=== PATIENT | male | born 1995 | race American Indian/Alaskan Native ===

== ENCOUNTER 2018-09-09 08:21 | Emergency (ER) | payer SELFPAY ==
[2018-09-09 08:30] VITALS: BP 129/69
--- NOTE | 2018-09-09 09:04 | Emergency Department Report ---
ED General Adult HPI - General Chief complaint: Chest Pain Stated complaint: CHEST/FOOT/R WRIST PAIN Time Seen by Provider: 09/09/18 08:54 Source: patient Mode of arrival: Ambulatory Limitations: No Limitations - History of Present Illness Initial comments: 23-year-old male who presents to ED with complaint of right foot pain x1 year. Patient states he injured his foot one year ago, and it has been hurting since that injury. Patient denies any recent foot injury. Patient reports pain is on the lateral and plantar aspect of the right foot. It has worsened due to the fact that he does a lot of standing at his job Patient states his girlfriend told to get his chest pain checked out while he was here. Patient reports he occasionally has pain in the center of his chest, that lasts a few seconds at a time, it makes his chest feels as if it is "empty, like nothing is there." Patient denies any chest pain at this time. Denies any aggravating or alleviating factors for the chest pain. States these episodes have been ongoing for "months." Patient also states "I think I sprained my wrist." -: year(s) (1) Location: chest, right, lower extremity Quality: aching Consistency: intermittent Worsens with: other (standing for long periods of time) Associated Symptoms: denies other symptoms - Related Data Previous Rx's Medication Instructions Recorded Last Taken Type Naproxen [Naprosyn] 500 mg PO BID #20 tablet 09/09/18 Unknown Rx Allergies Allergy/AdvReac Type Severity Reaction Status Date / Time No Known Allergies Allergy Unverified 09/09/18 08:25 ED Review of Systems ROS: Stated complaint: CHEST/FOOT/R WRIST PAIN Other details as noted in HPI Comment: All other systems reviewed and negative Constitutional: denies: chills, fever Respiratory: denies: cough, shortness of breath Cardiovascular: chest pain Musculoskeletal: as per HPI ED Past Medical Hx - Past Medical History Previous Medical History?: No - Surgical History Past Surgical History?: No - Social History Smoking Status: Current Every Day Smoker Substance Use Type: Marijuana - Medications Home Medications: Home Medications Medication Instructions Recorded Confirmed Last Taken Type Naproxen [Naprosyn] 500 mg PO BID #20 tablet 09/09/18 Unknown Rx ED Physical Exam - General Limitations: No Limitations General appearance: alert, in no apparent distress - Head Head exam: Present: atraumatic, normocephalic - Eye Eye exam: Present: normal appearance, PERRL, EOMI - ENT ENT exam: Present: mucous membranes moist - Neck Neck exam: Present: normal inspection - Respiratory Respiratory exam: Present: normal lung sounds bilaterally. Absent: respiratory distress - Cardiovascular Cardiovascular Exam: Present: normal rhythm, bradycardia - GI/Abdominal GI/Abdominal exam: Present: tenderness. Absent: distended - Extremities Exam Extremities exam: Present: normal inspection, full ROM - Neurological Exam Neurological exam: Present: alert, oriented X3 - Psychiatric Psychiatric exam: Present: normal affect, normal mood - Skin Skin exam: Present: warm, dry, intact, normal color ED Course Vital Signs 09/09/18 09/09/18 09/09/18 08:28 08:45 09:25 Temperature 97.8 F Pulse Rate 52 L 60 Respiratory 15 18 Rate Blood Pressure 129/69 O2 Sat by Pulse 98 99 Oximetry ED Medical Decision Making - EKG Data -: EKG Interpreted by Me EKG shows normal: sinus rhythm, axis, intervals, QRS complexes, ST-T waves Rate: normal - EKG Data Interpretation: no acute changes - Radiology Data Radiology results: report reviewed, image reviewed - Differential Diagnosis sprain, arthralgia, chest wall pain Critical care attestation.: If time is entered above; I have spent that time in minutes in the direct care of this critically ill patient, excluding procedure time. ED Disposition Clinical Impression: Chest pain, Chronic pain in right foot, Right wrist sprain Disposition: - TO HOME OR SELFCARE Is pt being admited?: No Condition: Stable Instructions: Chest Pain (ED), Arthralgia (ED), Wrist Sprain (ED) Prescriptions: Naproxen [Naprosyn] 500 mg PO BID #20 tablet Referrals: [facility] [Provider Group] - 3-5 Days Forms: Work/School Release Form(ED) Time of Disposition: 09:09
--- NOTE | 2018-09-09 09:33 | XRay Report ---
CHEST 1 VIEW INDICATION / CLINICAL INFORMATION: Chest Pain. COMPARISON: None available. FINDINGS: SUPPORT DEVICES: None. HEART / MEDIASTINUM: No significant abnormality. LUNGS / PLEURA: No significant pulmonary or pleural abnormality. No pneumothorax. ADDITIONAL FINDINGS: No significant additional findings. IMPRESSION: 1. No acute findings. Signer Name: Zach Luong MD Signed: 09/09/2018 9:29 AM Workstation Name: [id number]
== END 2018-09-09 09:25 | disposition home or self-care (01) ==
LOC: ED 08:21
DX: S63.501A Unspecified sprain of right wrist, initial encounter (principal); R07.9 Chest pain, unspecified; M79.671 Pain in right foot; G89.29 Other chronic pain; Z79.899 Other long term (current) drug therapy; X58.XXXA Exposure to other specified factors, initial encounter; Y93.89 Activity, other specified; Y92.89 Other specified places as the place of occurrence of the external cause; Y99.8 Other external cause status
CPT/HCPCS: 71045; 93005; 93010

== ENCOUNTER 2019-02-05 14:04 | Emergency (ER) | payer SELFPAY ==
[2019-02-05 14:33] VITALS: BP 116/42
[2019-02-05] MEDS ORDERED: WATER FOR INJ Sterile (PF) 10 ML ONE (14:33)
[2019-02-05] MEDS ORDERED: ZIPRASIDONE MESYLATE 20 MG VIAL IM ONE ×2 (14:33→15:30)
[2019-02-05] MEDS ORDERED: diphenhydrAMINE 50 MG/ML VIAL ONE (14:34)
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
[2019-02-05] MEDS ORDERED: diphenhydrAMINE 50 MG/ML VIAL IM ONE (15:30)
== END 2019-02-05 15:02 | disposition home or self-care (01) ==
LOC: ED 14:04
DX: S00.03XA Contusion of scalp, initial encounter (principal); F17.200 Nicotine dependence, unspecified, uncomplicated; F12.10 Cannabis abuse, uncomplicated; X58.XXXA Exposure to other specified factors, initial encounter; Y93.89 Activity, other specified; Y92.89 Other specified places as the place of occurrence of the external cause; Y99.8 Other external cause status
CPT/HCPCS: 99283; J1200; J3486